=== PATIENT | female | born 2000 | race Caucasian/White ===

== ENCOUNTER 2020-12-10 11:06 | Emergency (ER) | payer SELFPAY ==
--- NOTE | 2020-12-10 11:25 | EDM.PDOC ---
ED HPI GENERAL MEDICAL PROBLEM - General Chief Complaint: Genitourinary Problem Stated Complaint: LOWER BACK PAIN Time Seen by Provider: 12/10/20 11:08 Source of Information: Reports: Patient History Limitations: Reports: No Limitations - History of Present Illness INITIAL COMMENTS - FREE TEXT/NARRATIVE: HISTORY AND PHYSICAL: History of present illness: Patient is a 20-year-old female who presents emergency room today with concern of bilateral low back pain and right lower quadrant pain that started last night. Patient states that she just got to [place] from [place] and states that she has been a long car ride and started associating her symptoms due to a long car ride. Patient states that it started last night and she took some [id number] pain medications and states that this cleared up her pain and she was able to sleep last night. Patient states when she woke up this morning, the pain reoccurred and she has been vomiting and unable to keep any fluids down since this morning associated with the pain and discomfort. Patient states that she is sexually active with a partner who is not in a monogamous relationship but states that she has not had any other partners but is unsure of his sexually transmitted infection status. Patient states there is also a chance that she could be but states that she did have her last menstrual cycle 3 to 4 weeks ago and is due to start this any time. Patient denies any trauma or injury or any other associated symptoms. Patient denies any abdominal surgeries or any other health history. Patient denies fever, chills, chest pain, shortness of breath, or cough. Denies headache, neck stiff ness, change in vision, syncope, or near syncope. Denies diarrhea, constipation, or dysuria. Has not noted any blood in urine or stool. Patient has been eating and drinking appropriately prior to this morning. Patient denies loss or retention of bowel bladder function or saddle anesthesia. Review of systems: As per history of present illness and below otherwise all systems reviewed and negative. Past medical history: As per history of present illness and as reviewed below otherwise noncontributory. Surgical history: As per history of present illness and as reviewed below otherwise noncontributory. Social history: See social history for further information Family history: As per history of present illness and as reviewed below otherwise noncontributory. Physical exam: General: Patient is alert, oriented, and in no acute distress. Patient sitting comfortably on exam table. Vitals stable and reviewed by me. Vital stable and reviewed by me. HEENT: Atraumatic, normocephalic, pupils equal and reactive bilaterally, negative for conjunctival pallor or scleral icterus, mucous membranes moist, TMs normal bilaterally, throat clear, neck supple, nontender, trachea midline. No drooling or trismus noted. No meningeal signs. No hot potato voice noted. Lungs: Clear to auscultation, breath sounds equal bilaterally, chest nontender. Heart: S1S2, regular rate and rhythm without overt murmur Abdomen: Soft, nondistended, mild right lower quadrant tenderness without rebound, negative Worthington sign. Negative for masses or hepatosplenomegaly. Negative for costovertebral tenderness but tenderness of the flank areas to palpation. Pelvis: Stable nontender. Genitourinary: exam performed by PA student João Wright observed and supervised directly by me. External genitalia grossly unremarkable. There is a moderate amount of thick white vaginal discharge in the vaginal vault. Cervical os is closed. Negative cervical motion tenderness. Uterus is nontender with no adnexal masses or tenderness noted. Rectal: Deferred. Skin: Intact, warm, dry. No lesions or rashes noted. Extremities/musculoskeletal: No obvious deformity to complete spine. No step- offs, or crepitus noted to palpation of the complete spine. Patient does have some mild tenderness to palpation of the bilateral paraspinous muscles of the lumbar spine. Otherwise, patient has full range of motion of the complete spine without pain or difficulty. Straight leg raise is intact bilaterally. Patellar reflexes intact bilaterally. Heel/toe gait intact. Otherwise, atraumatic, negative for cords or calf pain. Neurovascular unremarkable. Neuro: Awake, alert, oriented. Cranial nerves II through XII unremarkable. Cerebellum unremarkable. Motor and sensory unremarkable throughout. Exam nonfocal. Notes: Patient is a 20-year-old female who presents emergency room today with concern of bilateral low back pain and right lower quadrant abdominal pain that started last night with associated vomiting. Upon arrival to the ED, patient is vitally stable and well-appearing on exam and is not actively vomiting. She has noted to have some mild right lower quadrant tenderness with non specific pain of the paraspinous muscles of the lumbar spine without and white vaginal discharge in the vaginal vault with negative motion tenderness of the cervix. Will obtain lab work as well as a abdominal pelvic CT scan with contrast and perform affirm and gonorrhea and chlamydia swabbing. CBC notes a mild elevation in white blood cells of 14.12, otherwise remainder of CBC and CMP mild derangements are unremarkable. Patient is noted to have a positive trichomoniasis infection on affirm. Patient is given 2 g p.o. of Flagyl today in the emergency room. Pending gonorrhea and chlamydia swab at this time. Patient's urinalysis does show 30 protein with small leukocyte Estrace. 1-3 white blood cells and 0 red blood cells with negative bacteria. hCG is negative. Will culture urine although at this time does not appear to be in obvious source of infection. Patient is not having dysuria symptoms, fever, or CVA tenderness so we will follow urine culture. Abdominal pelvic CT scan is unremarkable CT of the abdomen and pelvis with no findings to explain flank, or abdominal or back pain. Appendix is normal. Upon reevaluation of patient, she remains vitally stable and comfortable throughout stay in ED. Patient is able to tolerate p.o. intake in the ED and has not had any episodes of vomiting. Discussed with patient that if she desires full STD screening, she can get this done with a women's health care provider, primary care provider. Discussed with patient that she should refrain from sexual activity until she has a test of cure which she can have done with primary care or women's health care provider. Informed patient to notify all partners of trichomoniasis infection so that they can also be treated. Strict return precautions thoroughly discussed with patient. Discussed importance for follow-up with a primary care provider and women's health provider. Voices understanding and is agreeable to plan of care. Denies any further questions or concerns at this time. Diagnostics: UA, Uhcg, CBC, CMP, lipase, affirm, gonorrhea and chlamydia, abdominal pelvic CT with and without contrast Therapeutics: Saline, Zofran, Toradol, Flagyl Prescription: Zofran Impression: Low back pain Trichomoniasis infection Plan: Take medications as prescribed. Establish care with a primary care provider and women's health provider. Make sure all partners are treated and get a test of cure as discussed. STI testing can be obtained at [facility]. Return to the emergency department as needed and as discussed. Definitive disposition and diagnosis as appropriate pending reevaluation and review of above. low back Pain Score (Numeric/FACES): 7 - Related Data Allergies Allergy/AdvReac Type Severity Reaction Status Date / Time No Known Allergies Allergy Verified 12/10/20 11:41 Home Meds: Home Meds Ondansetron [Zofran ODT] 4 mg PO Q6H PRN #8 tab.dis 12/10/20 [Rx] ED ROS GENERAL - Review of Systems Review Of Systems: Comprehensive ROS is negative, except as noted in HPI. ED EXAM, GENERAL - Physical Exam Exam: See Below (see dictation) Course - Vital Signs Last Recorded V/S: Last Vital Signs Temp 98.2 F 12/10/20 13:38 Pulse 79 12/10/20 15:18 Resp 16 12/10/20 15:18 BP 108/72 12/10/20 15:18 Pulse Ox 97 12/10/20 15:18 - Orders/Labs/Meds Orders: Active Orders 24 hr Category Date Time Status CHLAMYDIA AND GONORRHEA BY TMA Stat Lab 12/10/20 12:32 Received CULTURE URINE [MREF] Stat Lab 12/10/20 11:18 Received Labs: Laboratory Tests 12/10/20 12/10/20 12/10/20 Range/Units 11:18 11:18 12:19 WBC 14.12 H (4.0-11.0) K/uL RBC 4.92 (4.30-5.90) M/uL Hgb 16.1 H (12.0-16.0) g/dL Hct 45.6 (36.0-46.0) % MCV 92.7 (80.0-98.0) fL MCH 32.7 H (27.0-32.0) pg MCHC 35.3 (31.0-37.0) g/dL RDW Std Deviation 43.2 (28.0-62.0) fl RDW Coeff of Fiona 13 (11.0-15.0) % Plt Count 236 (150-400) K/uL MPV 10.10 (7.40-12.00) fL Neut % (Auto) 85.6 H (48.0-80.0) % Lymph % (Auto) 6.8 L (16.0-40.0) % [place] % (Auto) 7.4 (0.0-15.0) % Eos % (Auto) 0.1 (0.0-7.0) % Baso % (Auto) 0.1 (0.0-1.5) % Neut # (Auto) 12.1 H (1.4-5.7) K/uL Lymph # (Auto) 1.0 (0.6-2.4) K/uL [place] # (Auto) 1.0 H (0.0-0.8) K/uL Eos # (Auto) 0.0 (0.0-0.7) K/uL Baso # (Auto) 0.0 (0.0-0.1) K/uL Nucleated RBC % 0.0 /100WBC Nucleated RBCs # 0 K/uL Sodium (136-145) mmol/L Potassium (3.5-5.1) mmol/L Chloride (98-107) mmol/L Carbon Dioxide (21.0-32.0) mmol/L BUN (7.0-18.0) mg/dL Creatinine (0.6-1.0) mg/dL Est Cr Clr Drug Dosing mL/min Estimated GFR (MDRD) ml/min Glucose (74-106) mg/dL Calcium (8.5-10.1) mg/dL Total Bilirubin (0.2-1.0) mg/dL AST (15-37) IU/L ALT (14-63) IU/L Alkaline Phosphatase (46-116) U/L Total Protein (6.4-8.2) g/dL Albumin (3.4-5.0) g/dL Globulin (2.6-4.0) g/dL Albumin/Globulin Ratio (0.9-1.6) Lipase (73-393) U/L Urine Color YELLOW Urine Appearance CLEAR Urine pH 6.5 (5.0-8.0) Ur Specific [place] 1.010 (1.001-1.035) Urine Protein 30 H (NEGATIVE) mg/dL Urine Glucose (UA) NEGATIVE (NEGATIVE) mg/dL Urine Ketones NEGATIVE (NEGATIVE) mg/dL Urine Occult Blood TRACE-INTACT H (NEGATIVE) Urine Nitrite NEGATIVE (NEGATIVE) Urine Bilirubin NEGATIVE (NEGATIVE) Urine Urobilinogen 0.2 (<2.0) EU/dL Ur Leukocyte Esterase SMALL H (NEGATIVE) Urine RBC NONE SEEN (0-2/HPF) Urine WBC 1-3 (0-5/HPF) Ur Epithelial Cells OCCASIONAL (NONE-FEW) Urine Bacteria FEW (NEGATIVE) Urine Mucus LIGHT (NONE-MOD) Urine HCG, Qual NEGATIVE (NEGATIVE) Marya species DNA (NEGATIVE) Gardnerella DNA Probe (NEGATIVE) Trichomonas DNA Probe (NEGATIVE) 12/10/20 12/10/20 Range/Units 12:19 12:32 WBC (4.0-11.0) K/uL RBC (4.30-5.90) M/uL Hgb (12.0-16.0) g/dL Hct (36.0-46.0) % MCV (80.0-98.0) fL MCH (27.0-32.0) pg MCHC (31.0-37.0) g/dL RDW Std Deviation (28.0-62.0) fl RDW Coeff of Fiona (11.0-15.0) % Plt Count (150-400) K/uL MPV (7.40-12.00) fL Neut % (Auto) (48.0-80.0) % Lymph % (Auto) (16.0-40.0) % [place] % (Auto) (0.0-15.0) % Eos % (Auto) (0.0-7.0) % Baso % (Auto) (0.0-1.5) % Neut # (Auto) (1.4-5.7) K/uL Lymph # (Auto) (0.6-2.4) K/uL [place] # (Auto) (0.0-0.8) K/uL Eos # (Auto) (0.0-0.7) K/uL Baso # (Auto) (0.0-0.1) K/uL Nucleated RBC % /100WBC Nucleated RBCs # K/uL Sodium 145 (136-145) mmol/L Potassium 3.6 (3.5-5.1) mmol/L Chloride 105 (98-107) mmol/L Carbon Dioxide 25.8 (21.0-32.0) mmol/L BUN 15 (7.0-18.0) mg/dL Creatinine 1.1 H (0.6-1.0) mg/dL Est Cr Clr Drug Dosing 64.26 mL/min Estimated GFR (MDRD) > 60.0 ml/min Glucose 110 H (74-106) mg/dL Calcium 9.4 (8.5-10.1) mg/dL Total Bilirubin 1.0 (0.2-1.0) mg/dL AST 16 (15-37) IU/L ALT 15 (14-63) IU/L Alkaline Phosphatase 62 (46-116) U/L Total Protein 7.6 (6.4-8.2) g/dL Albumin 4.6 (3.4-5.0) g/dL Globulin 3.0 (2.6-4.0) g/dL Albumin/Globulin Ratio 1.5 (0.9-1.6) Lipase 26 L (73-393) U/L Urine Color Urine Appearance Urine pH (5.0-8.0) Ur Specific Ware (1.001-1.035) Urine Protein (NEGATIVE) mg/dL Urine Glucose (UA) (NEGATIVE) mg/dL Urine Ketones (NEGATIVE) mg/dL Urine Occult Blood (NEGATIVE) Urine Nitrite (NEGATIVE) Urine Bilirubin (NEGATIVE) Urine Urobilinogen (<2.0) EU/dL Ur Leukocyte Esterase (NEGATIVE) Urine RBC (0-2/HPF) Urine WBC (0-5/HPF) Ur Epithelial Cells (NONE-FEW) Urine Bacteria (NEGATIVE) Urine Mucus (NONE-MOD) Urine HCG, Qual (NEGATIVE) Marya species DNA NEGATIVE (NEGATIVE) Gardnerella DNA Probe NEGATIVE (NEGATIVE) Trichomonas DNA Probe POSITIVE H (NEGATIVE) Meds: Medications Discontinued Medications Generic Name Dose Route Start Last Admin Trade Name Freq PRN Reason Stop Dose Admin Sodium Chloride 1,000 mls @ 999 mls/hr 12/10/20 12:09 12/10/20 12:27 Normal Saline IV 12/10/20 13:09 999 mls/hr BOLUS ONE Administration Iopamidol 100 ml 12/10/20 14:10 12/10/20 14:11 Iopamidol 755 Mg/Ml 500 Ml Multipack Bottle IVPUSH 12/10/20 14:11 100 ml ONETIME STA Administration Ketorolac Tromethamine 30 mg 12/10/20 12:09 12/10/20 12:27 Ketorolac 30 Mg/Ml Sdv IVPUSH 12/10/20 12:10 30 mg ONETIME ONE Administration Metronidazole 2,000 mg 12/10/20 14:26 12/10/20 14:31 Metronidazole 250 Mg Tab PO 12/10/20 14:27 2,000 mg NOW ONE Administration Ondansetron HCl 4 mg 12/10/20 12:09 12/10/20 12:27 Ondansetron 4 Mg/2 Ml Sdv IVPUSH 12/10/20 12:10 4 mg ONETIME ONE Administration Departure - Departure Time of Disposition: 14:59 Disposition: Home, Self-Care 01 Clinical Impression: Trichomoniasis Back pain Qualifiers: Back pain location: low back pain Chronicity: acute Back pain laterality: bilateral Sciatica presence: without sciatica Qualified Code(s): M54.5 - Low back pain - Discharge Information Prescriptions: Ondansetron [Zofran ODT] 4 mg PO Q6H PRN #8 tab.dis PRN Reason: Nausea/Vomiting Instructions: Trichomoniasis Referrals: PCP,Not In Area [Primary Care Provider] - Forms: ED Department Discharge Additional Instructions: The following information is given to patients seen in the emergency department who are being discharged to home. This information is to outline your options for follow-up care. We provide all patients seen in our emergency department with a follow-up referral. The need for follow-up, as well as the timing and circumstances, are variable depending upon the specifics of your emergency department visit. If you don't have a primary care physician on staff, we will provide you with a referral. We always advise you to contact your personal physician following an emergency department visit to inform them of the circumstance of the visit and for follow-up with them and/or the need for any referrals to a consulting specialist. The emergency department will also refer you to a specialist when appropriate. This referral assures that you have the opportunity for follow-up care with a specialist. All of these measure are taken in an effort to provide you with optimal care, which includes your follow-up. Under all circumstances we always encourage you to contact your private physician who remains a resource for coordinating your care. When calling for follow-up care, please make the office aware that this follow-up is from your recent emergency room visit. If for any reason you are refused follow-up, please contact the [facility] Emergency Department at and asked to speak to the emergency department charge nurse. [facility] [address] [place] [address] [facility] [address] [place] [address] [facility] [address] [place] [address] Take medications as prescribed. Establish care with a primary care provider and women's health provider. Make sure all partners are treated and get a test of cure as discussed. STI testing can be obtained at [facility]. Return to the emergency department as discussed. Sepsis Event Note (ED) - Focused Exam Vital Signs: Vital Signs Temp Pulse Resp BP Pulse Ox 12/10/20 15:18 79 16 108/72 97 12/10/20 13:38 98.2 F 82 18 128/72 98 12/10/20 11:19 97.6 F 73 122/80 97 - My Orders Last 24 Hours: My Active Orders 12/10/20 11:18 CULTURE URINE [MREF] Stat 12/10/20 12:32 CHLAMYDIA AND GONORRHEA BY TMA Stat - Assessment/Plan Last 24 Hours: My Active Orders 12/10/20 11:18 CULTURE URINE [MREF] Stat 12/10/20 12:32 CHLAMYDIA AND GONORRHEA BY TMA Stat
[2020-12-10] MEDS ORDERED: Sodium Chloride 0.9% 1,000 ML IV ONE (12:09)
[2020-12-10] MEDS ORDERED: Ondansetron 4 MG/2 ML SDV IVPUSH ONE (12:09)
[2020-12-10] MEDS ORDERED: Ketorolac 30 MG/ML SDV IVPUSH ONE (12:09)
[2020-12-10 13:03] LABS: BLOOD UREA NITROGEN,BUN 15 mg/dL (7.0-18.0); CARBON DIOXIDE,CO2 25.8 mmol/L (21.0-32.0); CHLORIDE,CL 105 mmol/L (98-107); GLUCOSE RANDOM 110 mg/dL (74-106); LIPASE 26 U/L (73-393); POTASSIUM,K 3.6 mmol/L (3.5-5.1); SODIUM,NA 145 mmol/L (136-145)
[2020-12-10] MEDS ORDERED: Iopamidol 755 MG/ML 500 ML Multipack Bottle IVPUSH STA (14:10)
[2020-12-10] MEDS ORDERED: metroNIDAZOLE 250 MG Tab PO ONE (14:26)
--- NOTE | 2020-12-10 14:52 | CT ---
For Patients: As a result of the Century Cures Act, medical imaging exams and procedure reports are released immediately into your electronic medical record. You may view this report before your referring provider. If you have questions, please contact your health care provider. INDICATION: Bilateral flank pain. Back pain. Right lower quadrant abdomen pain. TECHNIQUE: CT abdomen and pelvis acquired without and with 100 cc Isovue 370 IV contrast. COMPARISON: None. FINDINGS: Lower chest: Unremarkable. Liver: Unremarkable. Normal in size and attenuation. No suspicious masses. Gallbladder and bile ducts: Unremarkable. No stones or inflammation. No biliary dilatation. Pancreas: Unremarkable. No mass or inflammation. Spleen: Unremarkable. Normal in size. No masses. Adrenal glands: Unremarkable. No nodules. Kidneys: Unremarkable. No suspicious masses, stones, or hydronephrosis. GI tract: Unremarkable. Normal in caliber. No sign of mass or inflammation. Normal appendix. Vasculature: Unremarkable. Mesenteric arteries are patent. Lymph nodes: No lymphadenopathy. Omentum/Peritoneum/Abdominal Wall: Unremarkable. No sign of mass or infiltration. No free air or significant free fluid. Pelvis: Unremarkable. Bones: Unremarkable for age. IMPRESSION: Unremarkable CT of the abdomen and pelvis. No findings to explain flank, abdomen or back pain. Please note that all CT scans at this facility use dose modulation, iterative reconstruction, and/or weight-based dosing when appropriate to reduce radiation dose to as low as reasonably achievable. Dictated by Chaz Rosario MD @ 12/10/2020 2:50:[address] Chaz Rosario @ Dec 10 2020 2:50PM
[2020-12-11 11:07] LABS: C.TRACHOMATIS BY TMA Negative (Negative); N.GONORRHOEAE BY TMA Negative (Negative)
== END 2020-12-10 15:19 | disposition home or self-care (01) ==
LOC: MW.ED 11:06
DX: M54.5 Low back pain (principal); A59.9 Trichomoniasis, unspecified
CPT/HCPCS: 36415; 74178; 80053; 81001; 81025; 83690; 85025; 87086; 87480; 87491; 87510; 87591; 87660; 96374; 96375; 99284; A9270; J1885; J2405; J7030; Q9967